=== PATIENT | female | born 1960 ===

== ENCOUNTER → 2022-07-08 | Outpatient (CLI) | payer OTHER ==
[2022-07-08 14:28] LABS: BILIRUBIN,URINE NEGATIVE (NEGATIVE)
== END | disposition home or self-care (01) ==
LOC: NPLAB 14:08
PROVIDERS: ATTEND Internal Medicine
DX: R41.82 Altered mental status, unspecified (principal); E23.2 Diabetes insipidus
CPT/HCPCS: 81001; 87077; 87086

== ENCOUNTER → 2023-04-20 | Outpatient (CLI) | payer OTHER ==
[2023-04-20 12:58] LABS: APPEARANCE,URINE CLEAR; BILIRUBIN,URINE NEGATIVE (NEGATIVE); LEUKOCYTE ESTERASE ,URINE NEGATIVE (NEGATIVE); NITRATE,URINE NEGATIVE (NEGATIVE); PH,URINE 5.5 (4.5-8.0); UA COLOR YELLOW; UROBILINOGEN,URINE 0.2 E.U./dL (0.2)
== END | disposition home or self-care (01) ==
LOC: NPLAB 12:32
PROVIDERS: ATTEND Internal Medicine
DX: N39.0 Urinary tract infection, site not specified (principal); E23.2 Diabetes insipidus; R41.82 Altered mental status, unspecified
CPT/HCPCS: 81001

== ENCOUNTER → 2023-04-24 | Outpatient (CLI) | payer OTHER ==
[2023-04-24 12:18] LABS: BILIRUBIN,URINE NEGATIVE (NEGATIVE); LEUKOCYTE ESTERASE ,URINE NEGATIVE (NEGATIVE); NITRATE,URINE NEGATIVE (NEGATIVE); PH,URINE 6.5 (4.5-8.0); UROBILINOGEN,URINE 0.2 E.U./dL (0.2)
[2023-04-24 12:37] LABS: APPEARANCE,URINE CLEAR; UA COLOR YELLOW
== END | disposition home or self-care (01) ==
LOC: NPLAB 12:00
DX: N39.0 Urinary tract infection, site not specified (principal)
CPT/HCPCS: 81001